=== PATIENT | male | born 1950 | race Native Hawaiian/Other Pacific Islander ===

== ENCOUNTER 2019-08-21 08:30 | Outpatient (CLI) | payer OTHER, BC | END 2019-08-21 19:19 | disposition home or self-care (01) | LOC: LABW 08:30 | DX: B35.1 Tinea unguium (principal); M79.674 Pain in right toe(s); Z79.899 Other long term (current) drug therapy | CPT/HCPCS: 36415; 80076 ==

== ENCOUNTER 2021-03-09 08:48 | Outpatient (CLI) | payer BC ==
[2021-03-09 09:42] LABS: POTASSIUM 4.5 mmol/L (3.6-5.2)
[2021-03-09 09:49] LABS: PLATELET COUNT 329 K/uL (142-355)
== END 2021-03-09 19:02 | disposition home or self-care (01) ==
LOC: LABW 08:48
PROVIDERS: ATTEND Nurse Practitioner
DX: R53.83 Other fatigue (principal)
CPT/HCPCS: 36415; 80053; 83540; 83550; 84443; 85027

== ENCOUNTER 2021-04-13 08:44 | Outpatient (CLI) | payer BC | END 2021-04-13 21:52 | disposition home or self-care (01) | LOC: CT 08:44 | PROVIDERS: ATTEND Nurse Practitioner Family | DX: J34.89 Other specified disorders of nose and nasal sinuses (principal) ==